=== PATIENT | female | born 1985 ===

== ENCOUNTER 2020-08-07 10:03 | Outpatient (REF) | payer OTHER, SELFPAY | END 2020-08-07 10:04 | disposition home or self-care (01) | LOC: HO.LAB 10:03 | PROVIDERS: Visit Provider Internal Medicine | DX: Z20.828 Contact with and (suspected) exposure to other viral communicable diseases (principal) | CPT/HCPCS: C9803; U0003 ==

== ENCOUNTER → 2020-09-07 12:59 | Outpatient (BNVA) | payer OTHER, SELFPAY | PROVIDERS: PCP Internal Medicine; Visit Provider Internal Medicine Gastroenterology | DX: K21.9 Gastro-esophageal reflux disease without esophagitis (principal); Z12.11 Encounter for screening for malignant neoplasm of colon; K59.09 Other constipation; D50.0 Iron deficiency anemia secondary to blood loss (chronic) | CPT/HCPCS: Q3014 ==

== ENCOUNTER 2020-10-05 09:25 | Outpatient (REF) | payer OTHER, SELFPAY | END 2020-10-05 09:26 | disposition home or self-care (01) | LOC: HO.LAB 09:25 | PROVIDERS: Visit Provider Internal Medicine | DX: Z20.822 Contact with and (suspected) exposure to COVID-19 (principal) | CPT/HCPCS: 36415; C9803; U0003; U0005 ==

== ENCOUNTER → 2021-04-02 08:57 | Outpatient (BNVA) | payer OTHER, SELFPAY | PROVIDERS: PCP Internal Medicine; Visit Provider Internal Medicine Gastroenterology ==

== ENCOUNTER → 2021-04-13 09:42 | Outpatient (BNVA) | payer OTHER, SELFPAY | PROVIDERS: PCP Internal Medicine; Visit Provider Advanced Practice Midwife ==

== ENCOUNTER 2021-04-26 08:00 | Outpatient (RCR) | payer OTHER, SELFPAY ==
--- NOTE | 2021-03-30 08:54 | MHC.PT.EP ---
[facility] [place] Office [place] Office [place] Office [address] Maggy Aparicio [address] [phone] F: [phone] F: [phone] F: [phone] F: [phone] Physical Therapy Plan of Care Date of Evaluation: Date of Surgery: N/A Diagnosis: cervicalgia Assessment: pt's signs and symptoms consistent w/ UE weakness, poor habitual posturing, and poor lifting mechanics. pt presents to physical therapy with pain, decreased range of motion, decreased strength, impaired functional mobility, impaired postural awareness. pt is good candidate for skilled PT due to age, potential remediation of impairments, typical disease/condition progression and prognosis, comorbidities, and motivation. pt would benefit from tailored strengthening and stretching exercise program, functional training, postural re-training, neuromuscular re-education, modalities as needed for pain, equipment safety demonstration. Frequency and Duration: The patient will be seen 2x/wk for 4 wks Short Term Goals: pt will be I w/ HEP to promote self-management of condition. 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 Fci Goals: pt will report a statistically significant improvement of self-reported outcome measure, NDI, to promote return to PLOF. pt will achieve >4/5 B middle and lower trapezius strength to promote neutral scapular posturing and reduce compensatory patterns w/ ADLs. Treatment Plan: Modalities to reduce pain, spasms and effusion. Manual therapy to restore motion and function. Therapeutic exercise to improve strength and flexibility. Neuromuscular re-education for posture and balance. Therapeutic activities to return to functional activities of daily living. Electronically signed by: Cheryl Duong PT, DPT Please sign and return to therapist. Thank you for your referral.
--- NOTE | 2021-04-26 15:39 | MHC.PT.DC ---
[facility] [place] Office [place] Office [place] Office [address] Maggy Aparicio [address] [phone] F: [phone] F: [phone] F: [phone] F: [phone] Physical Therapy Discharge Report Diagnosis: cervicalgia Date of Surgery: N/A Date of Evaluation: 03/30/21 Date of Discharge: 04/26/21 Treatments to Date: 8 Cancellations to Date: 0 No Shows to Date: 0 Discharge Status: Achieved Goals Improved Function Independent with HEP Discharge Summary: Pt was discharged from therapy today as she is feeling better and feels confident doing her HEP at home. Pt accomplished all goals for therapy as she is feeling much better, increased her shoulder/middle trap strength and demonstrated a greater ability to recruit her periscapular muscles. Electronically signed by: Selma Claros PT, DPT Please sign and return to therapist. Thank you for your referral.
== END 2021-04-26 15:39 | disposition home or self-care (01) ==
LOC: HO.PT 08:00
PROVIDERS: PCP Internal Medicine; Visit Provider Internal Medicine
DX: M54.2 Cervicalgia (principal)
CPT/HCPCS: 97110; 97112; 97140; 97161; 97530

== ENCOUNTER 2021-07-09 11:58 | Emergency (ER) | payer OTHER, SELFPAY ==
[2021-07-09 12:15] VITALS: BP 130/89; PULSE 90; RESP 16; TEMP 36.8; O2SAT 98; BMI 29.5
== END 2021-07-09 19:00 | disposition left against medical advice (07) ==
PROVIDERS: Emergency Provider Emergency Medicine; PCP Internal Medicine
DX: H57.13 Ocular pain, bilateral (principal)
CPT/HCPCS: 99281; 99282

== ENCOUNTER → 2021-10-04 09:39 | Outpatient (BNVA) | payer OTHER, SELFPAY | PROVIDERS: PCP Internal Medicine; Referring Provider Internal Medicine; Visit Provider Internal Medicine Gastroenterology | DX: Z12.11 Encounter for screening for malignant neoplasm of colon (principal); K59.09 Other constipation; K21.9 Gastro-esophageal reflux disease without esophagitis; D50.0 Iron deficiency anemia secondary to blood loss (chronic) | CPT/HCPCS: 99212 ==

== ENCOUNTER 2021-12-11 13:49 | Outpatient (REF) | payer OTHER, SELFPAY ==
--- NOTE | ~2021-12-11 | MM_ITS ---
EXAMINATION: MM DIAGNOSTIC DIGITAL BREAST TOMOSYNTHESIS, BILATERAL US DIAGNOSTIC ULTRASOUND BREAST, BILATERAL CLINICAL INFORMATION: 36-year-old with several months bilateral intermittent breast pain, some simultaneous cyclical involvement. No discharge. Palpable fullness on left 5:00 position at time of clinical exam. The lifetime risk of breast cancer based on the Tyrer-Cuzick Model is 16%. COMPARISON: Mammography: 10/30/2018, targeted left breast ultrasound 10/30/2018. TECHNIQUE: Digital breast tomosynthesis is performed in both the craniocaudal and mediolateral oblique views along with computer-aided detection (CAD). Synthesized 2D images are generated from the tomosynthesis. Ultrasound of each breast is targeted to the areas of clinical concern as noted by patient. Left breast is imaged 1:00 through 6:00 position and right breast 10:00 through 2:00 position. Grayscale imaging and color Doppler are performed without and with harmonics. FINDINGS: There are scattered areas of fibroglandular density (ACR BI-RADS breast composition Category b). Parenchymal pattern is similar to prior studies. There is no interval mass or architectural abnormality or abnormal calcifications. The axilla and skin contours are unremarkable. There is no skin thickening or coarsening of the Josue's ligaments. Ultrasound bilateral breasts demonstrate no cystic or solid mass, architectural abnormality, or focal duct ectasia. No skin thickening or edema tracking in soft tissue planes. No hyperemia. Results are discussed with the patient at time of visit. MM/MM tomosynthesis diagnostic BI IMPRESSION: -No mammographic evidence of malignancy or inflammatory changes. -Unremarkable targeted bilateral ultrasound. ASSESSMENT: BI-RADS 1: Negative RECOMMENDATION: 1. Patient's bilateral intermittent breast pain should be managed based on the clinical impression. If there is still clinically palpable concern, further evaluation may be considered with surgical consult. Decision to proceed with biopsy should be based on clinical grounds and degree of clinical concern. 2. Otherwise, routine annual screening mammography, beginning age 40, or earlier as clinical risk factors warrant. This patient's information was entered into a reminder system with a target due date for their next mammogram.
== END 2021-12-11 13:50 | disposition home or self-care (01) ==
LOC: HO.MAMMO 13:49
PROVIDERS: PCP Internal Medicine; Visit Provider Internal Medicine
DX: N64.4 Mastodynia (principal)
CPT/HCPCS: 76642; 77062; 77066

== ENCOUNTER 2022-06-25 08:59 | Outpatient (REF) | payer OTHER, SELFPAY ==
[2022-06-25 09:43] LABS: Alanine Aminotransferase 9 U/L (0-31); Albumin Level 4.5 g/dL (3.5-5.0); Alkaline Phosphatase 52 U/L (39-117); Anion Gap 13 (12-20); Aspartate Amino Transferase 13 U/L (5-31); Bilirubin Total 0.6 mg/dL (0.0-1.0); Blood Urea Nitrogen 11 mg/dL (9-16); Calcium 9.4 mg/dL (8.4-10.2); Carbon Dioxide 25 mmol/L (22-29); Chloride 105 mmol/L (96-108); Cholesterol 205 mg/dL; Estimated Glomerular Filt Rate > 60; Glucose Fasting 102 mg/dL (60-99); HDL Cholesterol 59 mg/dL; LDL Cholesterol Calculated 122 mg/dl; Potassium 4.1 mmol/L (3.3-5.1); Sodium 139 mmol/L (135-145); Total Protein 7.2 g/dL (6.5-8.0); Triglycerides 120 mg/dL
[2022-06-25 10:05] LABS: Vitamin D 25-OH Total 25.3 ng/mL (>30)
== END 2022-06-25 09:00 | disposition home or self-care (01) ==
LOC: HO.LAB 08:59
PROVIDERS: PCP Internal Medicine; Visit Provider Internal Medicine
DX: Z00.00 Encounter for general adult medical examination without abnormal findings (principal); E55.9 Vitamin D deficiency, unspecified
CPT/HCPCS: 36415; 80053; 80061; 82306

== ENCOUNTER → 2022-09-26 09:52 | Outpatient (BNVA) | payer OTHER, SELFPAY | PROVIDERS: PCP Internal Medicine; Referring Provider Internal Medicine; Visit Provider Internal Medicine Gastroenterology | DX: Z12.11 Encounter for screening for malignant neoplasm of colon (principal); K21.9 Gastro-esophageal reflux disease without esophagitis; K59.09 Other constipation; D50.0 Iron deficiency anemia secondary to blood loss (chronic) | CPT/HCPCS: 99212 ==

== ENCOUNTER 2023-06-20 08:04 | Outpatient (AMB) | payer OTHER, SELFPAY ==
--- NOTE | 2023-06-20 08:06 | A.OFFVIS_ITS ---
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 Scribed for TAHMINA Bernal by Camelia York, claim review medical director, on 06/20/2023 at 8:18 am EST. Faith Healer Required: No Information Interpreted: non-clinical & clinical Manager Ambulatory: Manager Ambulatory Present (Vivian HENAO) Accompanied by: Self / Same As Patient Allergies No Known Allergies [No Known Allergies*] Allergy (Verified 06/20/23 08:10) Is last menstrual period known: Yes Last menstrual period: 06/03/23 HPI HPI Comments History of Present Illness Details She is a premenopausal woman presenting for annual exam. She admits she doesnt eat healthy or try to stay active with exercise. Never been sexually active. Was on BC in the past. Monthly periods that last approximately 7 days with pain, fatigue and emotional changes. Reports menses always like this since menarche. Denies vaginal itching and irritation. STD screening offered; she declines. Denies family hx of breast, colon and ovarian cancer. Last pap smear 02/22/20. [facility] Medical History (Updated 06/20/23 @ 08:34 by Camelia York) Heavy menstrual bleeding History of painful menstruation Left breast mass Breast pain, right Breast pain, left Impaired glucose tolerance Neck pain GERD (gastroesophageal reflux disease) Surgical History History of endoscopy History of colonoscopy History of tonsillectomy Family History Father No problems noted. 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 Current occupational exposures/hazards: No Sexual orientation: Lesbian/Carrera/Homosexual Cognitive needs: No Hearing needs: No Vision needs: Yes Female Reproductive History Menstrual Age of Menarche: 18 Date of last menstrual period: 06/03/23 Total pregnancies: 0 Date of last pap smear: 02/22/20 Physical Exam Vital Signs: Last Vital Signs BP 100/62 06/20/23 08:07 BMI result Body Mass Index 30.6 Const General: cooperative, healthy appearing, no acute distress, well developed and alert Orientation/consciousness: patient oriented x3 HEENT Head: Yes normal to inspection Eyes General: appearance normal, both eyes and all related structures Neck Neck: Yes normal visual inspection Thyroid: Thyroid normal Chest Chest palpation & inspection: normal inspection of the chest Breast/axilla inspection: normal inspection of the breasts (no puckering, dimpling, peau de orange, retraction, discharge, masses) Breast/axilla palpation: normal palpation of the breasts Resp Effort & Inspection: normal respiratory effort GI Inspection: Yes normal to inspection Palpation (GI): Soft to palpation (to palpation) Rectal Exam - Female: deferred General: Yes bladder normal to inspection External Female Exam: normal external appearance and normal appearance of the urethra Speculum Exam - Vagina: normal appearance of the vagina, normal palpation and normal vaginal discharge Speculum Exam - Cervix: normal appearance of the cervix and normal palpation Bimanual exam- vagina & uterus: normal palpation and normal palpation Bimanual Exam- Adnexa, other: normal adnexae and no masses Skin General skin exam: no rashes or lesions noted Neuro General: patient oriented x3 Cognition (Neuro): normal cognition Extrem General: Yes normal to inspection Psych Attitude: cooperative Thought process: Normal thought process present Results Reviewed Results Reviewed: Laboratory Tests 05/09/19 05/13/20 23:39 09:45 WBC 11.8 H RBC 3.95 L 4.25 Hgb 11.7 L Hct 35.1 L Assessment & Plan Assessment & Plan (1) Encounter for well woman exam: Code(s): Z01.419 - Encounter for gynecological examination (general) (routine) without abnormal findings Plan: Discussed: Current recommendations for pap smears per ASCCP guidelines. Breast awareness and periodic self breast exams. Maintaining a healthy lifestyle including a well balanced diet and routine exercise. Encouraged to use condoms for STD and prevention if become sexually active w/male partner. Encouraged patient to sign up for patient portal. All of her questions and concerns were addressed to the best of my ability. RTO in one year for AG/prn. (2) control counseling: Code(s): Z30.09 - Encounter for other general counseling and advice on contraception Plan: Reviewed risks and benefits of BC. Contact office if interested. (3) History of painful menstruation: Code(s): Z87.42 - Personal history of other diseases of the female genital tract Plan: Lab work ordered. Follow up in person for results. Pelvic US advised; she declines. (4) Heavy menstrual bleeding: Code(s): N92.0 - Excessive and frequent menstruation with regular cycle Orders: Orders Complete Blood Count no Diff Today N92.0 - Excessive and frequent menstruation with regular cycle, Z87.42 - Personal history of other diseases of the female genital tract Thyroid Stimulating Hormone Today N92.0 - Excessive and frequent menstruation with regular cycle, N92.1 - Excessive and frequent menstruation with irregular cycle, Z87.42 - Personal history of other diseases of the female genital tract Coding Level of Care Code Est Pt Prev Care 18-39y([id number]) Diagnoses Encounter for well woman exam Z01.419 control counseling Z30.09 History of painful menstruation Z87.42 Heavy menstrual bleeding N92.0
[2023-06-20 08:07] VITALS: BP 100/62; BMI 30.6
== END 2023-06-20 08:37 | disposition home or self-care (01) ==
PROVIDERS: PCP Internal Medicine; Visit Provider Advanced Practice Midwife
DX: Z01.419 Encounter for gynecological examination (general) (routine) without abnormal findings (principal); Z30.09 Encounter for other general counseling and advice on contraception; Z87.42 Personal history of other diseases of the female genital tract; N92.0 Excessive and frequent menstruation with regular cycle
CPT/HCPCS: 99395

== ENCOUNTER 2023-06-20 08:04 | Outpatient (REF) | payer OTHER, SELFPAY ==
[2023-06-20 09:42] LABS: Hemoglobin 12.9 g/dl (12.0-16.0); Mean Corpuscular HGB Conc 32.3 g/dl (31.0-35.0); Mean Corpuscular Hemoglobin 28.9 pg (27.0-33.0); Mean Corpuscular Volume 89.5 fL (80.0-98.0); Mean Platelet Volume 11.4 fL (9.4-12.3); Platelet Count 278 X10*3/uL (160-400); Red Blood Count 4.47 X10*6/uL (4.20-5.50); Red Cell Distribution Width 13.5 % (11.0-16.0); White Blood Count 7.6 X10*3/uL (4.8-10.8)
[2023-06-20 10:29] LABS: Thyroid Stimulating Hormone 1.07 uIU/mL (0.32-4.0)
== END 2023-06-20 08:05 | disposition home or self-care (01) ==
LOC: HO.LAB 08:04
PROVIDERS: PCP Internal Medicine; Visit Provider Advanced Practice Midwife
DX: N92.1 Excessive and frequent menstruation with irregular cycle (principal); N92.0 Excessive and frequent menstruation with regular cycle; Z87.42 Personal history of other diseases of the female genital tract
CPT/HCPCS: 36415; 84443; 85027; 99395

== ENCOUNTER 2024-09-29 08:07 | Outpatient (REF) | payer OTHER, SELFPAY ==
[2024-10-08 15:00] LABS: HPV Genotype 16 Negative (Negative); HPV Genotype 18 Negative (Negative); HPV High Risk Negative (Negative)
== END 2024-09-29 08:08 | disposition home or self-care (01) ==
LOC: HO.LNP 08:07
PROVIDERS: PCP Internal Medicine; Visit Provider Advanced Practice Midwife
DX: Z01.419 Encounter for gynecological examination (general) (routine) without abnormal findings (principal); N64.4 Mastodynia
CPT/HCPCS: 87626; 88175; 99395; 99459

== ENCOUNTER 2024-12-27 07:53 | Outpatient (REF) | payer OTHER, SELFPAY ==
--- NOTE | ~2024-12-27 | US_ITS ---
EXAMINATION: MM DIAGNOSTIC DIGITAL BREAST TOMOSYNTHESIS, BILATERAL Right limited ultrasound. CLINICAL INFORMATION: Right breast pain. COMPARISON: Mammography: Comparison is made with relevant prior exams. TECHNIQUE: Digital breast mammography with tomosynthesis is performed in both the craniocaudal and mediolateral oblique views along with computer-aided detection (CAD). FINDINGS: There are scattered areas of fibroglandular density (ACR BI-RADS breast composition Category b). There are no significant masses, abnormal calcifications, or other abnormalities. Targeted color Doppler ultrasound scanning in the right breast in the area the patient's pain from 7-11 o'clock demonstrates normal fibronodular breast tissue. There is no sonographic abnormality. Results are provided to the patient at time of visit by the technologist. US/US breast RT limited mamm only IMPRESSION: No mammographic or sonographic abnormality to account for the patient's right breast pain. Recommend clinical evaluation and follow-up. Left: Negative. ASSESSMENT: BI-RADS BI-RADS 1 - Negative RECOMMENDATION: 1 year F/U This patient's information was entered into a reminder system with a target due date for their next mammogram. Electronically signed by: Genoveva Cazares DO 12/27/2024 09:46 AM EDT
--- OUTSIDE RECORDS SUMMARY | 2024-12-27 07:57 | XMS_ITS | Encounter Summary ---
Author Organization [facility] Address [address] [place] [address] Phone Care Team Providers Care Lump Maker Name Role Phone Gayatri Ring NP Primary Care Provider Unavail able Encounter Details Date Type Department Care Team (Late st Contact Info) Description 04/17/2017 Conversion Encounter [facility] - [address] [address] Social History Tobacco Use Types Packs/Day Years Used Date Smoking Tobacco: Never Assessed Comments Unknown Sex and Gender Information Value Date Recorded Sex Assigned at Not on file Legal Sex Female 4:14 PM EDT Gender Identity Not on file Sexual Orientation Not on file documented as of this encounter Plan of Treatment Not on file documented as of this encounter Visit Diagnoses Not on filedocumented in this encounter Care Teams Lump Maker Relationship Specialty Start Date End Date Gayatri Ring NP PCP - General 04/11/17 documented as of this encounter
--- OUTSIDE RECORDS SUMMARY | 2024-12-27 07:57 | XMS_ITS | Encounter Summary ---
Author Organization [email or web address] [facility] Address [address] [facility] [address] [place] [address] Care Team Providers Care Electric Motor Winder Name Role Phone Unavailable Primary Care Provider Unavailabl e Encounter Details Date Type Department Care Team (Latest Contact Info) Description 10/14/2018 Abstract C CONVERSIONS Dental, Provider, DDS Social History Tobacco Use Types Packs/Day Years Used Date Smoking Tobacco: Never Assessed Comments Unknown Sex and Gender Information Value Date Recorded Sex Assigned at Female 07/01/2022 10:29 AM EDT Legal Sex Female 10:29 AM EDT Gender Identity Not on file Sexual Orientation Not on file documented as of this encounter Plan of Treatment Not on file documented as of this encounter Visit Diagnoses Not on filedocumented in this encounter
--- OUTSIDE RECORDS SUMMARY | 2024-12-27 07:57 | XMS_ITS | Clinical Summary ---
Author Organization [employer] Address [address] [facility] [address] [place] [address] Care Team Providers Care Movement Assembler Name Role Phone Unavailable Primary Care Provider Unavailabl e Social History Tobacco Use Types Packs/Day Years Used Date Smoking Tobacco: Never Assessed Comments Unknown Sex and Gender Information Value Date Recorded Sex Assigned at Female 07/01/2022 10:29 AM EDT Legal Sex Female 10:29 AM EDT Gender Identity Not on file Sexual Orientation Not on file Plan of Treatment Health Maintenance Due Date Last Done Comments Depression Screening 1987 Alcohol/Substance Use Screening 1999 Tobacco Screening 1999 Family Planning (PISQ) 2002 DTaP/Tdap/Td Vaccines (1 - Tdap) 2006 Hepatitis B Vaccines (1 of 3 - 19+ 3-dose series) 2006 Pap Smear 2008 Cervical Cancer Screening 2017 HPV/Cotest 2017 COVID-19 Vaccine (1 - 2023-2 5 season) 2024 Influenza Vaccine (#1) 2024 Zoster Vaccines (1 of 2) 2037 RSV Patients and Pa tients Aged 60 years or older (1 - 1-dose 75+ series) 2062 HIB Vaccines Aged Out No longer eligi ble based on patient's age to complete this topic HPV Vaccines Aged Out No longer eligi ble based on patient's age to complete this topic Hepatitis A Vaccines Aged Out No long er eligible based on patient's age to complete this topic IPV Vaccines Aged Out No longer eligi ble based on patient's age to complete this topic Meningococcal Vaccine Aged Out No shahram terrell eligible based on patient's age to complete this topic Pneumococcal Vaccine: Pediat rics (0 to 5 Years) and At-Risk Patients (6 to 49) Years) Aged Out No longer eligible b ased on patient's age to complete this topic RSV under 20 months Aged Out No longe r eligible based on patient's age to complete this topic Rotavirus Vaccines Aged Out No longer eligible based on patient's age to complete this topic
--- OUTSIDE RECORDS SUMMARY | 2024-12-27 07:57 | XMS_ITS | Clinical Summary ---
Author Organization [facility] Address [address] [place] [phone] Phone Care Team Providers Care Supervisor Toy Assembly Name Role Phone Gayatri Ring NP Primary Care Provider Unavail able Immunizations Immunization Administration Dates Next Due DTP 01/29/1999, 8,10/29/1997,08/31,10/29/1991 Hep B, ped/adol 11/20/1998,09/11/1998,06/20/1998 Hib (HbOC) 11/29/1998 IPV 01/29/1999, 8,10/29/1997,08/31,10/29/1991 MMR 11/29/1998,05/01/1996 Meningococcal Conj (Menactra) MCV4P 12/06/2005 Td (adult) (MBL), 2 Lf tetan us toxoid, PF, adsorbed 09/11/1998 Tdap 12/06/2005 Family History Relation Name Status Comments Brother Alive Brother: Alive and well Father Father: Obesity , Elevated cholesterol Mother Alive Mother: Alive a nd well Other No family histo ry of Sudden /MS under age 55, No family history of Strabismus/amblyopia, Family history of Elevated cholesterol, No family history of ADD/ADHD, No family history of Developmental dislocation of hip, No family history of Migraines, No family history of Autism, No family history of Asthma, No family history of Seizure disorder, No family history of Deafness, Family history of Obesity, No family history of Diabetes mellitus Social History Tobacco Use Types Packs/Day Years Used Date Smoking Tobacco: Never Assessed Comments Unknown Sex and Gender Information Value Date Recorded Sex Assigned at Not on file Legal Sex Female 4:14 PM EDT Gender Identity Not on file Sexual Orientation Not on file Plan of Treatment Health Maintenance Due Date Last Done Comments Varicella Vaccines (1 of 2 - 13+ 2-dose series) 2000 DTaP,Tdap,and Td Vaccines (6 - Td or Tdap) 12/07/2015 12/06/2005, 01/29/1999, 09/11/1998, Additional history exists Influenza Vaccines (#1) 2024 COVID-19 Vaccine ( season) 2024 Hepatitis B Vaccines Completed 11/20/1998, 09/11/1998, 06/20/1998 HIB Vaccines Aged Out 11/29/1998 No longer eligi ble based on patient's age to complete this topic MMR Vaccines Completed 11/29/1998, 05/01/1996 IPV Vaccines Completed 01/29/1999, 01/01, 10/29/1997, Additional history exists Meningococcal Vaccine Completed 12/06/2005 HPV Vaccines Aged Out No longer eligi ble based on patient's age to complete this topic Hepatitis A Vaccines Aged Out No long er eligible based on patient's age to complete this topic Men B Vaccine Aged Out No longer elig ible based on patient's age to complete this topic Pneumococcal Vaccine Aged Out No long er eligible based on patient's age to complete this topic Care Teams Supervisor Toy Assembly Relationship Specialty Start Date End Date Gayatri Ring NP PCP - General 04/11/17
== END 2024-12-27 07:54 | disposition home or self-care (01) ==
LOC: HO.MAMMO 07:53
PROVIDERS: PCP Internal Medicine; Visit Provider Internal Medicine
DX: N64.4 Mastodynia (principal)
CPT/HCPCS: 76642; 77062; 77066

== ENCOUNTER → 2024-12-27 08:30 | Outpatient (BNV) | payer OTHER, SELFPAY | PROVIDERS: PCP Internal Medicine; Visit Provider Internal Medicine | DX: N64.4 Mastodynia (principal) | CPT/HCPCS: 76642; 77062; 77066 ==

== ENCOUNTER 2024-12-29 09:21 | Outpatient (AMB) | payer OTHER, SELFPAY ==
--- NOTE | 2024-12-29 09:23 | MHC.OFFVIS ---
Intake Visit Reasons: Mammo/Breast US results Director Translation: Director Translation Present (Holly) Allergies No Known Allergies [No Known Allergies*] Allergy (Verified 12/29/24 09:24) HPI Comments Details: Patient is here today for a follow up on breast imaging, history of right breast pain. Pain has resolved since last exam. REPLACED BY [facility] Medical History (Updated 12/29/24 @ 09:49 by Maria Ines Chawla CNM) Encounter to discuss test results Mastalgia Encounter for well woman exam with routine gynecological exam Heavy menstrual bleeding History of painful menstruation Left breast mass Breast pain, right Breast pain, left Impaired glucose tolerance Neck pain GERD (gastroesophageal reflux disease) Surgical History History of endoscopy History of colonoscopy History of tonsillectomy Family History Father No problems noted. 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 Current occupational exposures/hazards: No Sexual orientation: Lesbian/Carrera/Homosexual Cognitive needs: No Hearing needs: No Vision needs: Yes Female Reproductive History Menstrual Age of Menarche: 18 Review of Systems Const All systems reviewed & are unremarkable except as noted in HPI and below Reports no additional complaints Skin/Breast Reports system reviewed and no additional complaints, except as documented and Reports as per HPI Physical Exam Const General: cooperative, healthy appearing and no acute distress Chest Breast/axilla inspection: normal inspection of the breasts and normal inspection of the axillae Breast/axilla palpation: normal palpation of the breasts Skin General skin exam: no rashes or lesions noted Results Reviewed Results Reviewed: [facility] [address] [place] [address] Dr. Dawkins, IVAN [address] Ultrasound Report Signed Patient: Heidi Morrison MR#: [id number] : 1985 Acct:[id number] Age/Sex: 39 / F ADM Date: 12/27/24 Loc: HO.MAMMO Attending Dr: Ivania Wong MD Ordering Physician: Maria Ines Chawla CNM Date of Service: 12/27/24 Procedure(s): US breast RT limited mamm only Accession Number(s): [id number] cc: Maria Ines Chawla CNM; Ivania Reyez MD~ EXAMINATION: MM DIAGNOSTIC DIGITAL BREAST TOMOSYNTHESIS, BILATERAL Right limited ultrasound. CLINICAL INFORMATION: Right breast pain. COMPARISON: Mammography: Comparison is made with relevant prior exams. TECHNIQUE: Digital breast mammography with tomosynthesis is performed in both the craniocaudal and mediolateral oblique views along with computer-aided detection (CAD). FINDINGS: There are scattered areas of fibroglandular density (ACR BI-RADS breast composition Category b). There are no significant masses, abnormal calcifications, or other abnormalities. Targeted color Doppler ultrasound scanning in the right breast in the area the patient's pain from 7-11 o'clock demonstrates normal fibronodular breast tissue. There is no sonographic abnormality. Results are provided to the patient at time of visit by the technologist. US/US breast RT limited mamm only IMPRESSION: No mammographic or sonographic abnormality to account for the patient's right breast pain. Recommend clinical evaluation and follow-up. Left: Negative. ASSESSMENT: BI-RADS BI-RADS 1 - Negative RECOMMENDATION: 1 year F/U This patient's information was entered into a reminder system with a target due date for their next mammogram. 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 IMPRESSION: No mammographic or sonographic abnormality to account for the patient's right breast pain. Recommend clinical evaluation and follow-up. Left: Negative. ASSESSMENT: BI-RADS BI-RADS 1 - Negative RECOMMENDATION: 1 year F/U This patient's information was entered into a reminder system with a target due date for their next mammogram. (2) Mastalgia: Comment: Mammogram 11/2024, recommended follow up in 1 year. Code(s): N64.4 - Mastodynia Category: Medical Plan Self-breast exam reviewed, when to call the office for any concerns. Normal cyclic changes with premenstrual breast tenderness, observe pattern changes. The patient expressed understanding and agreement with the plan of care. All of her questions and concerns were addressed to the best of my ability. This note is constructed using voice recognition software. While every effort has been made to ensure accuracy, scuba diver errors may have been included. Coding Level of Care Code Est Pt Level 3 (54663) Diagnoses Encounter to discuss test results Z71.2 Mastalgia N64.4
--- OUTSIDE RECORDS SUMMARY | 2024-12-29 09:58 | XMS_ITS | Clinical Summary ---
Author Organization [employer] Address [address] [place] [address] Care Team Providers Care Merchant Patroller Name Role Phone Unavailable Primary Care Provider [...]
--- OUTSIDE RECORDS SUMMARY | 2024-12-29 09:58 | XMS_ITS | Encounter Summary ---
Author Organization [employer] [facility] Address [address] [place] [address] Care Team Providers Care Sharepoint Solutions Developer Name Role Phone Unavailable Primary Care Provider [...]
--- OUTSIDE RECORDS SUMMARY | 2024-12-29 09:58 | XMS_ITS | Encounter Summary ---
Author Organization [facility] Address [address] [place] [address] Phone Care Team Providers Care Job Setter Name Role Phone Gayatri Ring NP Primary Care Provider Unavail able Encounter Details Date Type Department Care Team (Late st Contact Info) Description 04/17/2017 Conversion Encounter [facility] - [address] [address] Social History Tobacco Use Types Packs/Day Years [...] on filedocumented in this encounter Care Teams Job Setter Relationship Specialty Start Date End Date Gayatri Ring NP PCP - General 04/11/17 documented as of this encounter
--- OUTSIDE RECORDS SUMMARY | 2024-12-29 09:58 | XMS_ITS | Clinical Summary ---
Author Organization [facility] Address [address] [place] [phone] Phone Care Team Providers Care Local City Driver Name Role Phone Gayatri Ring NP Primary [...] Other No family histo ry of [place] /[place] under age 55, No family history of [...] age to complete this topic Care Teams Local City Driver Relationship Specialty Start Date End Date Gayatri Ring NP PCP - General 04/11/17
== END 2024-12-29 11:44 | disposition home or self-care (01) ==
LOC: HO.HWS 09:21
PROVIDERS: PCP Internal Medicine; Visit Provider Advanced Practice Midwife
DX: Z71.2 Person consulting for explanation of examination or test findings (principal); N64.4 Mastodynia
CPT/HCPCS: 99213

== ENCOUNTER → 2024-12-29 09:21 | Outpatient (BNVA) | payer OTHER, SELFPAY | PROVIDERS: PCP Internal Medicine; Visit Provider Advanced Practice Midwife | DX: Z71.2 Person consulting for explanation of examination or test findings (principal); N64.4 Mastodynia | CPT/HCPCS: 99212 ==